=== PATIENT | female | born 1970 | race American Indian/Alaskan Native ===

== ENCOUNTER 2017-03-02 11:56 | Emergency (ER) | payer SELFPAY ==
[2017-03-02 12:45] LABS: Hematocrit 27.8 % (30.3-42.9); Hemoglobin 8.7 gm/dl (10.1-14.3); Mean Corpuscular HGB Conc 31 % (30-34); Mean Corpuscular Volume 75 fl (79-97); Platelet Count 605 K/mm3 (140-440); Red Blood Count 3.73 M/mm3 (3.65-5.03); White Blood Count 7.4 K/mm3 (4.5-11.0)
[2017-03-02 12:59] LABS: Mean Corpuscular Hemoglobin 23 pg (28-32); Red Cell Distribution Width 30.3 % (13.2-15.2)
[2017-03-02 13:00] LABS: Anion Gap 15 mmol/L; BUN/Creatinine Ratio 8.57; Blood Urea Nitrogen 6 mg/dL (7-17); Calcium 8.9 mg/dL (8.4-10.2); Carbon Dioxide 22 mmol/L (22-30); Glucose 92 mg/dL (65-100); Potassium 4.1 mmol/L (3.6-5.0); Sodium 136 mmol/L (137-145)
[2017-03-02 16:16] LABS: Basophils % (Manual) 0 % (0.0-1.8); Blastocytes % (Manual) 0 %; Eosinophils % (Manual) 0 % (0.0-4.3)
[2017-03-02 16:17] LABS: Anisocytosis 2+; Hypochromasia 1+; Platelet Estimate Consistent w Auto
[2017-03-02 16:18] LABS: Diff Status Complete
--- NOTE | 2017-03-02 17:27 | Emergency Department Report ---
ED Female HPI - General Chief complaint: Vaginal Bleeding Stated complaint: HEAVY VAGINAL BLEEDING Time Seen by Provider: 03/02/17 17:11 Source: patient Mode of arrival: Wheelchair Limitations: No Limitations - History of Present Illness Initial comments: 46-year-old female with history of PTSD, hypertension, depression, restless leg syndrome, multiple fibroids with transfusion acquired in the past due to heavy bleeding presenting today because of vaginal bleeding. Patient states that this has been going on and off for the last month. Had been to [place] where they had given her Provera and transfusion last month. Has associated lightheadedness without any syncopal episodes. - Related Data Home Medications Medication Instructions Recorded Confirmed Last Taken Sertraline [Zoloft] 150 mg PO DAILY 03/02/17 03/02/17 03/02/17 busPIRone [Buspar] 5 mg PO PRN 03/02/17 03/02/17 03/01/17 traZODone [Desyrel] 50 mg PO QHS 03/02/17 03/02/17 Unknown Allergies Allergy/AdvReac Type Severity Reaction Status Date / Time shellfish derived Allergy Swelling Verified 03/02/17 12:01 tetracycline Allergy Swelling Verified 03/02/17 12:01 ED Review of Systems ROS: Stated complaint: HEAVY VAGINAL BLEEDING Other details as noted in HPI Comment: All other systems reviewed and negative Constitutional: denies: chills, fever Cardiovascular: denies: chest pain Gastrointestinal: denies: nausea, vomiting Genitourinary: abnormal menses, other (vaginal bleeding) Skin: denies: rash Psychiatric: anxiety ED Past Medical Hx - Past Medical History Hx Hypertension: Yes Hx Psychiatric Treatment: Yes (MAJOR DEPRESSION / PTSD) Additional medical history: ANEMIA. RESTLESS LEG SYNDROME. HEART VALVE REGURGITATION. UTERINE FIBROIDS - Surgical History Additional Surgical History: "PARTIAL BOWEL RESECTION". [facility]. - Social History Smoking Status: Never Smoker Substance Use Type: Prescribed - Medications Home Medications: Home Medications Medication Instructions Recorded Confirmed Last Taken Type Sertraline [Zoloft] 150 mg PO DAILY 03/02/17 03/02/17 03/02/17 History busPIRone [Buspar] 5 mg PO PRN 03/02/17 03/02/17 03/01/17 History traZODone [Desyrel] 50 mg PO QHS 03/02/17 03/02/17 Unknown History ED Physical Exam - General Limitations: No Limitations General appearance: alert - Head Head exam: Present: atraumatic - Eye Eye exam: Present: normal appearance - ENT ENT exam: Present: normal exam - Respiratory Respiratory exam: Present: normal lung sounds bilaterally. Absent: respiratory distress - Cardiovascular Cardiovascular Exam: Present: regular rate, normal rhythm - GI/Abdominal GI/Abdominal exam: Present: soft. Absent: distended, tenderness - External exam: Present: normal external exam, other (moderate amount of dark blood in vaginal vault, no active bleeding, no cmt, no suprapubic or adenexal tenderness) - Extremities Exam Extremities exam: Present: normal inspection, normal capillary refill - Neurological Exam Neurological exam: Present: alert, oriented X3 - Psychiatric Psychiatric exam: Present: normal affect - Skin Skin exam: Present: intact ED Course Vital Signs 03/02/17 03/02/17 03/02/17 12:06 16:51 17:00 Temperature 98.4 F Pulse Rate 97 H 85 Respiratory 17 17 Rate Blood Pressure 113/74 122/78 O2 Sat by Pulse 100 100 100 Oximetry 03/02/17 03/02/17 03/02/17 17:10 17:20 17:30 Temperature Pulse Rate 88 87 81 Respiratory 12 17 15 Rate Blood Pressure 122/78 122/78 110/68 O2 Sat by Pulse 100 100 100 Oximetry 03/02/17 03/02/17 03/02/17 17:40 17:50 18:00 Temperature Pulse Rate 90 79 90 Respiratory 20 18 16 Rate Blood Pressure 110/68 110/68 115/68 O2 Sat by Pulse 100 100 Oximetry 03/02/17 03/02/17 03/02/17 18:10 18:11 18:20 Temperature Pulse Rate 88 87 Respiratory 19 16 13 Rate Blood Pressure 115/68 115/68 O2 Sat by Pulse 100 100 100 Oximetry 03/02/17 03/02/17 03/02/17 18:30 18:40 18:50 Temperature Pulse Rate 88 92 H 125 H Respiratory 15 11 L 15 Rate Blood Pressure 118/74 118/74 118/74 O2 Sat by Pulse 100 100 100 Oximetry 03/02/17 03/02/17 03/02/17 19:00 19:10 19:20 Temperature Pulse Rate 123 H Respiratory 17 27 H 13 Rate Blood Pressure 126/81 126/81 126/81 O2 Sat by Pulse 100 100 100 Oximetry 03/02/17 19:30 Temperature Pulse Rate Respiratory 15 Rate Blood Pressure 115/66 O2 Sat by Pulse 99 Oximetry ED Medical Decision Making - Lab Data Result diagrams: 03/02/17 12:14 03/02/17 12:14 - Medical Decision Making C/w heavy mensturation from fibroids labs show hgb > 7, labs otherwise unremarkable patient is taking iron pills inconcinstently, has them with her, told to continue to take them every day and to follow up soon with an blasting entry specialist. Stable for discharge Critical care attestation.: If time is entered above; I have spent that time in minutes in the direct care of this critically ill patient, excluding procedure time. ED Disposition Clinical Impression: Vaginal bleeding Fibroids Qualifiers: Uterine leiomyoma location: unspecified location Qualified Code(s): D25.9 - Leiomyoma of uterus, unspecified Disposition: DISCHARGED TO HOME OR SELFCARE Is pt being admited?: No Does the pt Need Aspirin: No Condition: Stable Instructions: Menstruation (ED), Uterine Fibroids (ED) Additional Instructions: Please follow up with Dr. Marin, our blasting entry specialist monorail car operator, in the next 3-5 days. Return to the ER if your symptoms worsen or you develop new symptoms. Referrals: PRIMARY CAREMD [Primary Care Provider] - 3-5 Days DOMENICA MARIN MD [Staff Physician] - 3-5 Days
[2017-03-02 19:02] LABS: Bilirubin,Urine NEG (Negative); Blood,Urine LG (Negative); Ketones,Urine 20 mg/dL (Negative); Leukocyte Esterase,Urine NEG (Negative); Nitrite,Urine NEG (Negative); Urobilinogen,Urine < 2.0 mg/dL (<2.0)
[2017-03-02 19:05] LABS: Bacteria,Urine 1+ /HPF (Negative); Mucus,Urine 3+ /HPF
[2017-03-02 19:06] LABS: RBC,Urine > 182.0 /HPF (0.0-6.0)
[2017-03-02 19:42] VITALS: BP 115/66
== END 2017-03-02 19:40 | disposition home or self-care (01) ==
LOC: ED 11:56
DX: D25.9 Leiomyoma of uterus, unspecified (principal); N93.9 Abnormal uterine and vaginal bleeding, unspecified; I10 Essential (primary) hypertension; F32.9 Major depressive disorder, single episode, unspecified; D64.9 Anemia, unspecified; G25.81 Restless legs syndrome; Z88.1 Allergy status to other antibiotic agents; Z91.013 Allergy to seafood
CPT/HCPCS: 36415; 80048; 81001; 84703; 85007; 85025; 86850; 86900; 86901; 99284